=== PATIENT | female | born 1965 | race Caucasian/White ===

== ENCOUNTER 2016-05-18 17:43 | Inpatient (IN) | payer SELFPAY ==
[~2016-05-18] VITALS: Ht 162.6 cm; Wt 84.8 kg
[2016-05-18] MEDS ORDERED: MORPHINE SULFATE 4 MG/ML CPJ (NOT FOR IM USE) IV STA (18:04)
[2016-05-18] MEDS ORDERED: ONDANSETRON HCL 4MG/2ML VIAL IV STA (18:04)
[2016-05-18 18:21] LABS: BASOPHILS % 0.8 % (0.0-2.0); HEMOGLOBIN. 11.8 g/dL (12.0-16.0); LYMPHOCYTES % 31.4 % (20.0-50.0); MEAN CORPUSCULAR HEMOGLOBIN 26.9 pg (28.0-32.0); MEAN CORPUSCULAR HGB CONC 32.8 g/dL (31.0-37.0); MEAN PLATELET VOLUME 9.4 fl (7.4-10.4); MONOCYTES % 9.5 % (2.0-8.0); NEUTROPHILS % 55.3 % (40.0-76.0); PLATELET 200 x1000/uL (130-400); RED BLOOD CELL COUNT 4.39 mill/uL (4.2-5.4); RED CELL DISTRIBUTION WIDTH 15.5 % (11.6-14.6); WHITE BLOOD COUNT 6.8 x1000/uL (4.5-11.0)
[2016-05-18 18:27] LABS: PROTHROMBIN TIME 10.6 sec
[2016-05-18 18:29] LABS: ANION GAP 13; CALCIUM 8.7 mg/dL (8.5-10.1); CARBON DIOXIDE 24 mEq/L (21-32); CHLORIDE 109 mEq/L (98-107); ETHANOL BLOOD < 10 mg/dL; INDEX HEMOLYSI 1 (1-3); INDEX ICTERIC 1 (1-4); INDEX LIPEMIC 1 (1-3); UREA NITROGEN BLOOD 75 mg/dL (7-21)
[2016-05-18 18:36] LABS: ALANINE AMINOTRANSFERASE 11 IU/L (13-61); CREATINE KINASE 92 IU/L (26-192); NT PRO B-TYPE NATRIURETIC PEP 441 pg/mL (5-125); TROPONIN I < 0.02 ng/mL (0.00-0.04); eGFR 31 mL/min (>60)
[2016-05-18] MEDS ORDERED: ACETAMINOPHEN 325MG TABLET PO ONE (18:45)
[2016-05-18 20:40] LABS: CLARITY URINE CLOUDY (CLEAR); COLOR URINE YELLOW (YELLOW); GLUCOSE URINE NEGATIVE (NEGATIVE); KETONES URINE NEGATIVE (NEGATIVE); LEUKOCYTE ESTERASE URINE TRACE (NEGATIVE); NITRITE URINE NEGATIVE (NEGATIVE); OCCULT BLOOD URINE TRACE (NEGATIVE); PROTEIN URINE 3+ (NEGATIVE); SPECIFIC GRAVITY URINE 1.017 (1.005-1.030); UROBILINOGEN URINE 0.2 E.U./dL (0.2-1.0)
[2016-05-18 20:54] LABS: *AMPHETAMINES SCREEN URINE NEGATIVE (NEGATIVE); *BARBITURATES SCREEN URINE NEGATIVE (NEGATIVE); *BENZODIAZEPINES SCREEN URINE NEGATIVE (NEGATIVE); *COCAINE SCREEN URINE NEGATIVE (NEGATIVE); CANNABINOID URINE SCREEN NEGATIVE (NEGATIVE); ECSTASY MDMA SCREEN URINE NEGATIVE (NEGATIVE); METHADONE URINE SCREEN NEGATIVE (NEGATIVE); OPIATES URINE SCREEN NEGATIVE (NEGATIVE); PHENCYCLIDINE URINE SCREEN NEGATIVE (NEGATIVE)
[2016-05-18 20:57] LABS: BACTERIA URINE 1+; RBC URINE 0-2 /hpf (0-2); SQUAMOUS EPITHELIAL CELL URINE 2+ /lpf (RARE/1+)
[2016-05-18] MEDS ORDERED: CEFTRIAXONE 1 G PREMIX 50 ML IV ONE (21:30)
[2016-05-18 22:40] VITALS: BP 130/68
[2016-05-18 23:00] VITALS: BP 130/68
[2016-05-18] MEDS ORDERED: CLONIDINE 0.1MG TABLET PO PRN (23:15)
[2016-05-18] MEDS ORDERED: ACETAMINOPHEN 325MG TABLET PO PRN (23:15)
[2016-05-18] MEDS ORDERED: DOCUSATE SODIUM 100MG CAPSULE PO PRN (23:15)
[2016-05-18] MEDS ORDERED: MAGNESIUM/ALUMINUM HYDROXIDE/SIMETHICONE 30ML UDC PO PRN (23:15)
[2016-05-18] MEDS ORDERED: ONDANSETRON HCL 4MG/2ML VIAL IV PRN (23:15)
[2016-05-18] MEDS ORDERED: IPRATROPIUM/ALBUTEROL 0.5-3(2.5)MG/3ML NEB INH PRN (23:15)
[2016-05-19] VITALS: BP 129/69
[2016-05-19] MEDS: SODIUM CHLORIDE 0.9% 1,000 ML IV SCH ×2 (00:26→13:25)
[2016-05-19] MEDS ORDERED: DEXTROSE 50% WATER 50ML SYRINGE IV PRN ×2 (01:45→14:45)
[2016-05-19 04:00] VITALS: BP_SYST 117; BP_SYST 126; BP_SYST 127; BP_DIAS 73; BP_DIAS 79; BP_DIAS 85
[2016-05-19 05:36] LABS: BASOPHILS % 0.6 % (0.0-2.0); EOSINOPHILS % 3.2 % (0.0-5.0); HEMOGLOBIN. 10.9 g/dL (12.0-16.0); LYMPHOCYTES % 29.6 % (20.0-50.0); MEAN CORPUSCULAR HGB CONC 33.1 g/dL (31.0-37.0); MEAN CORPUSCULAR VOLUME 81.5 fL (81.0-99.0); MEAN PLATELET VOLUME 9.7 fl (7.4-10.4); MONOCYTES % 9.2 % (2.0-8.0); NEUTROPHILS % 57.4 % (40.0-76.0); PLATELET 197 x1000/uL (130-400); RED BLOOD CELL COUNT 4.04 mill/uL (4.2-5.4); RED CELL DISTRIBUTION WIDTH 15.2 % (11.6-14.6); WHITE BLOOD COUNT 6.9 x1000/uL (4.5-11.0)
[2016-05-19 05:56] LABS: ANION GAP 14; CALCIUM 8.5 mg/dL (8.5-10.1); CARBON DIOXIDE 22 mEq/L (21-32); CHLORIDE 108 mEq/L (98-107); INDEX HEMOLYSI 1 (1-3); INDEX ICTERIC 1 (1-4); INDEX LIPEMIC 1 (1-3); MAGNESIUM 2.5 mg/dL (1.8-2.4); UREA NITROGEN BLOOD 72 mg/dL (7-21)
[2016-05-19 06:03] LABS: CREATINE KINASE 99 IU/L (26-192); CREATINE KINASE MB FRACTION 1.4 ng/mL (0.5-3.6); HDL CHOLESTEROL 41 mg/dL (40-59); LDL CHOLESTEROL 148 mg/dL (5-100); TRIGLYCERIDE 443 mg/dL (0-150); TROPONIN I < 0.02 ng/mL (0.00-0.04); eGFR 29 mL/min (>60)
[2016-05-19] MEDS ORDERED: BLOOD SUGAR DIAGNOSTIC STRIP TEST SCH (07:40)
[2016-05-19 08:00] VITALS: BP 116/69
[2016-05-19] MEDS ORDERED: HYDROCODONE/ACETAMINOPHEN 5/325MG TABLET PO PRN (09:30)
[2016-05-19] MEDS: ENOXAPARIN 40MG/0.4ML SYR SUBCUT SCH (09:33)
[2016-05-19] MEDS: INSULIN LISPRO 100 UNITS/ML SUBCUT SCH ×4 (09:34→21:41)
[2016-05-19] MEDS: HYDROCODONE/ACETAMINOPHEN 5/325MG TABLET PO PRN ×2 (10:00→19:03)
[2016-05-19 12:00] VITALS: BP_SYST 118; BP_SYST 134; BP_SYST 139; BP_DIAS 75; BP_DIAS 80
[2016-05-19 12:12] LABS: HEPATITIS B SURFACE ANTIGEN NEGATIVE
[2016-05-19 12:40] LABS: HEPATITIS C VIR.AB < 0.02 INDEXVAL (0.00-0.80)
[2016-05-19 12:41] LABS: HEPATITIS B CORE AB IGM NEGATIVE
[2016-05-19 12:42] LABS: HEPATITIS A AB IGM NEGATIVE (NEGATIVE)
[2016-05-19 16:00] VITALS: BP 140/82
[2016-05-19 16:30] LABS: CREATINE KINASE 87 IU/L (26-192); CREATINE KINASE MB FRACTION 1.2 ng/mL (0.5-3.6); INDEX HEMOLYSI 1 (1-3); TROPONIN I < 0.02 ng/mL (0.00-0.04)
[2016-05-19] MEDS: BLOOD SUGAR DIAGNOSTIC STRIP TEST SCH ×2 (17:40→21:40)
[2016-05-19 20:00] VITALS: BP 132/72
[2016-05-19] MEDS ORDERED: ATORVASTATIN CALCIUM 40MG TABLET PO SCH (21:00)
[2016-05-19] MEDS ORDERED: HYDR25TA PO (22:19)
[2016-05-19] MEDS ORDERED: ASPI-1035 PO (22:19)
[2016-05-19] MEDS ORDERED: DOCU-150 PO (22:19)
[2016-05-19] MEDS ORDERED: GABA-290 PO (22:19)
[2016-05-19] MEDS ORDERED: ATOR80TA PO (22:19)
[2016-05-19] MEDS ORDERED: LEVO50TA70 PO (22:19)
[2016-05-19] MEDS ORDERED: LISI10TA5 PO (22:19)
[2016-05-19] MEDS ORDERED: FENO145T19 PO (22:22)
[2016-05-19] MEDS ORDERED: DOCUSATE SODIUM 100MG CAPSULE PO PRN (22:30)
[2016-05-19] MEDS: GABAPENTIN 300MG CAPSULE PO SCH (22:37)
[2016-05-20] VITALS: BP 153/86
[2016-05-20 04:00] VITALS: BP 120/70
[2016-05-20 06:08] LABS: BASOPHILS % 0.5 % (0.0-2.0); EOSINOPHILS % 1.6 % (0.0-5.0); HEMATOCRIT. 33.5 % (36.0-48.0); HEMOGLOBIN. 10.9 g/dL (12.0-16.0); LYMPHOCYTES % 25.6 % (20.0-50.0); MEAN CORPUSCULAR HEMOGLOBIN 27.1 pg (28.0-32.0); MEAN CORPUSCULAR HGB CONC 32.5 g/dL (31.0-37.0); MEAN CORPUSCULAR VOLUME 83.5 fL (81.0-99.0); MEAN PLATELET VOLUME 9.9 fl (7.4-10.4); MONOCYTES % 6.3 % (2.0-8.0); PLATELET 182 x1000/uL (130-400); RED BLOOD CELL COUNT 4.01 mill/uL (4.2-5.4); WHITE BLOOD COUNT 6.7 x1000/uL (4.5-11.0)
[2016-05-20 06:27] LABS: CALCIUM 8.4 mg/dL (8.5-10.1)
[2016-05-20] MEDS: BLOOD SUGAR DIAGNOSTIC STRIP TEST SCH ×2 (06:48→12:40)
[2016-05-20] MEDS ORDERED: LEVOTHYROXINE SODIUM 50MCG TABLET PO SCH (07:40)
[2016-05-20 08:00] VITALS: BP 140/78
[2016-05-20] MEDS ORDERED: HYDROCHLOROTHIAZIDE 25MG TABLET PO SCH (09:00)
[2016-05-20] MEDS ORDERED: ASPIRIN 81MG EC TABLET PO SCH (09:00)
[2016-05-20] MEDS ORDERED: FENOFIBRATE NANOCRYSTALLIZED 48MG TABLET PO SCH (09:00)
[2016-05-20] MEDS: LISINOPRIL 10MG TABLET PO SCH ×2 (09:06→17:00)
[2016-05-20] MEDS: ENOXAPARIN 40MG/0.4ML SYR SUBCUT SCH (09:07)
[2016-05-20] MEDS: INSULIN LISPRO 100 UNITS/ML SUBCUT SCH ×2 (09:10→13:14)
[2016-05-20] MEDS: HYDROCODONE/ACETAMINOPHEN 5/325MG TABLET PO PRN (09:15)
[2016-05-20] MEDS ORDERED: SODIUM POLYSTYRENE SULFONATE 15 G/60 ML BOT PO NR (10:00)
[2016-05-20 12:00] VITALS: BP 129/77
[2016-05-20] MEDS: SODIUM CHLORIDE 0.9% 1,000 ML IV SCH (12:43)
[2016-05-20] MEDS ORDERED: ATOR80TA PO (12:44)
[2016-05-20] MEDS ORDERED: AMLO10TA80 PO (12:44)
[2016-05-20] MEDS ORDERED: HYDR25TA PO (12:44)
[2016-05-20] MEDS ORDERED: FENO145T19 PO (12:44)
[2016-05-20] MEDS ORDERED: GABA-290 PO (12:44)
[2016-05-20 16:00] VITALS: BP 122/67
[2016-05-20] MEDS: GABAPENTIN 300MG CAPSULE PO SCH (17:00)
[2016-05-22 06:18] LABS: ANTI-NUCLEAR ANTIBODIES DIRECT Positive (Negative); COMPLEMENT C3 133 mg/dL (82-167); COMPLEMENT C4 28 mg/dL (14-44)
== END 2016-05-20 17:15 | disposition home or self-care (01) | DRG 468 ==
LOC: EDBD 17:45 → ER 17:45 → 7WST 21:44
PROVIDERS: ADMIT Internal Medicine; ATTEND Internal Medicine
DX: I12.9 Hypertensive chronic kidney disease with stage 1 through stage 4 chronic kidney disease, or unspecified chronic kidney disease (principal); G93.40 Encephalopathy, unspecified; N17.9 Acute kidney failure, unspecified; E11.22 Type 2 diabetes mellitus with diabetic chronic kidney disease; E11.649 Type 2 diabetes mellitus with hypoglycemia without coma; N18.3 Chronic kidney disease, stage 3 (moderate); D63.8 Anemia in other chronic diseases classified elsewhere; E87.5 Hyperkalemia; E78.00 Pure hypercholesterolemia, unspecified; I25.10 Atherosclerotic heart disease of native coronary artery without angina pectoris; E78.5 Hyperlipidemia, unspecified; H40.9 Unspecified glaucoma; F32.9 Major depressive disorder, single episode, unspecified; F41.9 Anxiety disorder, unspecified; M19.079 Primary osteoarthritis, unspecified ankle and foot; H26.9 Unspecified cataract; J32.9 Chronic sinusitis, unspecified; E66.9 Obesity, unspecified; E86.0 Dehydration; N39.0 Urinary tract infection, site not specified; Z79.4 Long term (current) use of insulin; Z68.32 Body mass index [BMI] 32.0-32.9, adult; Z95.1 Presence of aortocoronary bypass graft; Z88.8 Allergy status to other drugs, medicaments and biological substances
CPT/HCPCS: 36415; 70450; 70551; 71010; 76770; 80048; 80053; 80061; 80305; 81001; 82550; 82553; 82962; 83036; 83605; 83735; 83880; 84100; 84443; 84484; 85025; 85610; 86038; 86160; 86592; 86705; 86709; 86803; 87040; 87086; 87340; 93005; 93306; 93880; 96374; 96375; 99285; G0482; J0696; J1650; J1815; J2270; J2405; J7030

== ENCOUNTER 2018-06-27 19:25 | Inpatient (IN) | payer SELFPAY ==
[~2018-06-27] VITALS: Ht 162.6 cm; Wt 80.9 kg
[~2018-06-27 19:25] MED LIST: AMLO10TA80 PO; ASPI-1159 PO; ATOR80TA PO; DOCU-150 PO; FENO145T36 PO; GABA-290 PO; HYDR25TA PO; LEVO50TA PO
[2018-06-27] MEDS ORDERED: ASPIRIN 81MG TABLET PO ONE (20:00)
[2018-06-27] MEDS ORDERED: NITROGLYCERIN 0.4MG TABLET SL SL PRN (20:00)
[2018-06-27 20:17] LABS: BASOPHILS % 0.6 % (0.0-2.0); EOSINOPHILS % 3.5 % (0.0-5.0); HEMATOCRIT. 31.2 % (36.0-48.0); HEMOGLOBIN. 10.4 g/dL (12.0-16.0); LYMPHOCYTES % 22.4 % (20.0-50.0); MEAN CORPUSCULAR HEMOGLOBIN 27.8 pg (28.0-32.0); MEAN CORPUSCULAR VOLUME 83.5 fL (81.0-99.0); MEAN PLATELET VOLUME 9.8 fl (7.4-10.4); MONOCYTES % 8.9 % (2.0-8.0); NEUTROPHILS % 64.6 % (40.0-76.0); PLATELET 187 x1000/uL (130-400); RED BLOOD CELL COUNT 3.73 mill/uL (4.2-5.4); RED CELL DISTRIBUTION WIDTH 14.5 % (11.6-14.6)
[2018-06-27 20:21] LABS: CHLORIDE 113 mEq/L (98-107)
[2018-06-27] MEDS ORDERED: ENOXAPARIN 80MG/0.8ML SYR SUBCUT ONE (20:45)
[2018-06-27 21:33] LABS: *AMPHETAMINES SCREEN URINE NEGATIVE (NEGATIVE); *BARBITURATES SCREEN URINE NEGATIVE (NEGATIVE); *BENZODIAZEPINES SCREEN URINE NEGATIVE (NEGATIVE); *COCAINE SCREEN URINE NEGATIVE (NEGATIVE)
[2018-06-27 21:34] LABS: CANNABINOID URINE SCREEN NEGATIVE (NEGATIVE); METHADONE URINE SCREEN NEGATIVE (NEGATIVE); OPIATES URINE SCREEN NEGATIVE (NEGATIVE); PHENCYCLIDINE URINE SCREEN NEGATIVE (NEGATIVE)
[2018-06-27] MEDS ORDERED: DOCUSATE SODIUM 100MG CAPSULE PO PRN (22:15)
[2018-06-27] MEDS ORDERED: LORAZEPAM 2MG/ML CPJ IV PRN (22:15)
[2018-06-27] MEDS ORDERED: MAGNESIUM/ALUMINUM HYDROXIDE/SIMETHICONE 30ML UDC PO PRN (22:15)
[2018-06-27] MEDS ORDERED: DEXTROSE 50% WATER 50ML SYRINGE IV PRN (22:15)
[2018-06-27] MEDS ORDERED: ENOXAPARIN 40MG/0.4ML SYR SUBCUT SCH (22:15)
[2018-06-27] MEDS ORDERED: HYDROMORPHONE HCL/PF 2MG/ML CPJ IV PRN (22:15)
[2018-06-27] MEDS ORDERED: CLONIDINE 0.1MG TABLET PO PRN (22:15)
[2018-06-27] MEDS ORDERED: HYDRALAZINE 20MG/ML VIAL IV PRN (22:15)
[2018-06-27] MEDS ORDERED: IPRATROPIUM/ALBUTEROL 0.5-3(2.5)MG/3ML NEB INH PRN (22:15)
[2018-06-27] MEDS ORDERED: ONDANSETRON HCL 4MG/2ML INJ IV PRN (22:15)
[2018-06-27] MEDS ORDERED: DIPHENHYDRAMINE 50MG/ML VIAL IV PRN (22:15)
[2018-06-27] MEDS ORDERED: GUAIFENESIN 200MG/10ML SUGAR FREE UDC PO PRN (22:15)
[2018-06-27] MEDS ORDERED: ACETAMINOPHEN 325MG TABLET PO PRN (22:15)
[2018-06-27] MEDS ORDERED: HYDROCODONE/ACETAMINOPHEN 10/325MG TABLET PO PRN (22:15)
[2018-06-28] VITALS (31 sets, daily range): BP systolic 127–177; BP diastolic 66–98
[2018-06-28] MEDS: SODIUM CHLORIDE 0.9% INJ 3ML FLUSH IVF SCH ×3 (06:02→21:07)
[2018-06-28] MEDS ORDERED: BLOOD SUGAR DIAGNOSTIC STRIP TEST SCH (06:50)
[2018-06-28 07:11] LABS: BASOPHILS % 0.8 % (0.0-2.0); EOSINOPHILS % 4.2 % (0.0-5.0); HEMATOCRIT. 30.9 % (36.0-48.0); LYMPHOCYTES % 29.1 % (20.0-50.0); MEAN CORPUSCULAR HEMOGLOBIN 27.7 pg (28.0-32.0); MEAN CORPUSCULAR VOLUME 85.2 fL (81.0-99.0); MEAN PLATELET VOLUME 10.4 fl (7.4-10.4); MONOCYTES % 9.6 % (2.0-8.0); NEUTROPHILS % 56.3 % (40.0-76.0); PLATELET 172 x1000/uL (130-400); RED BLOOD CELL COUNT 3.62 mill/uL (4.2-5.4); RED CELL DISTRIBUTION WIDTH 15.1 % (11.6-14.6)
[2018-06-28] MEDS ORDERED: INSULIN LISPRO 100 UNITS/ML SUBCUT SCH (07:20)
[2018-06-28] MEDS: BLOOD SUGAR DIAGNOSTIC STRIP TEST SCH ×4 (07:50→20:41)
[2018-06-28] MEDS: INSULIN LISPRO 100 UNITS/ML SUBCUT SCH ×4 (07:55→20:39)
[2018-06-28] MEDS: ENOXAPARIN 30MG/0.3ML SYR SUBCUT SCH (07:56)
[2018-06-28 08:07] LABS: CHLORIDE 116 mEq/L (98-107)
[2018-06-28 08:31] LABS: CREATINE KINASE MB FRACTION 28.3 ng/mL (0.5-3.6); LDL CHOLESTEROL 67 mg/dL (5-100)
[2018-06-28 08:32] LABS: CREATINE KINASE 458 IU/L (26-192); HDL CHOLESTEROL 48 mg/dL (40-59); T4 FREE 1.31 ng/dL (0.76-1.46)
[2018-06-28] MEDS ORDERED: ASPIRIN 81MG EC TABLET PO SCH (09:00)
[2018-06-28] MEDS ORDERED: CLONIDINE 0.2MG TABLET PO PRN (10:15)
[2018-06-28] MEDS: NITROGLYCERIN OINT 1GM/INCH UDPKT TD SCH ×4 (10:21→20:34)
[2018-06-28] MEDS: AMLODIPINE 5MG TABLET PO SCH ×2 (10:47→20:35)
[2018-06-28 10:49] LABS: BG BASE EXCESS -4.1 mmol/L (-2.0-2.0); BG CARBOXYHEMOGLOBIN 0.4 % (0.5-1.5); BG DEOXYHEMOGLOBIN 2.8 % (0.0-5.0); BG FRACTION INSPIRED OXYGEN 28; BG HCO3 ACT 19.9 mmol/L (22.0-26.0); BG OXYGEN SATURATION 97.2 % (92.0-98.5); BG OXYHEMOGLOBIN 96.8 % (94.0-97.0); BG PCO2 32.9 mmHg (35.0-45.0); BG PO2 93.1 mmHg (75.0-100.0); BG SAMPLE SITE LEFT BRACHIAL; BG TOTAL HEMOGLOBIN 11.4 g/dL (12.0-18.0); BG VENT MODE NASAL CANNULA
[2018-06-28 12:13] LABS: UCG SCREEN NEGATIVE
[2018-06-28 12:35] LABS: *BENZODIAZEPINES SCREEN URINE NEGATIVE (NEGATIVE); *COCAINE SCREEN URINE NEGATIVE (NEGATIVE); METHADONE URINE SCREEN NEGATIVE (NEGATIVE); OPIATES URINE SCREEN NEGATIVE (NEGATIVE)
[2018-06-28 12:36] LABS: *AMPHETAMINES SCREEN URINE NEGATIVE (NEGATIVE); CANNABINOID URINE SCREEN NEGATIVE (NEGATIVE); PHENCYCLIDINE URINE SCREEN NEGATIVE (NEGATIVE)
[2018-06-28] MEDS ORDERED: ENOXAPARIN 30MG/0.3ML SYR SUBCUT NR (13:00)
[2018-06-28 13:05] LABS: *BARBITURATES SCREEN URINE NEGATIVE (NEGATIVE)
[2018-06-28] MEDS ORDERED: NITROGLYCERIN OINT 1GM/INCH UDPKT TD NR (13:15)
[2018-06-28] MEDS: ASPIRIN 81MG EC TABLET PO SCH (16:51)
[2018-06-28] MEDS: CARVEDILOL 3.125 MG TABLET PO SCH (20:35)
[2018-06-29] VITALS (7 sets, daily range): BP systolic 116–146; BP diastolic 50–76
[2018-06-29] MEDS: NITROGLYCERIN OINT 1GM/INCH UDPKT TD SCH ×3 (00:20→07:52)
[2018-06-29] MEDS: BLOOD SUGAR DIAGNOSTIC STRIP TEST SCH (06:16)
[2018-06-29] MEDS: SODIUM CHLORIDE 0.9% INJ 3ML FLUSH IVF SCH (06:16)
[2018-06-29] MEDS: INSULIN LISPRO 100 UNITS/ML SUBCUT SCH (06:23)
[2018-06-29 06:31] LABS: BASOPHILS % 0.8 % (0.0-2.0); EOSINOPHILS % 6.1 % (0.0-5.0); HEMATOCRIT. 28.2 % (36.0-48.0); HEMOGLOBIN. 9.3 g/dL (12.0-16.0); LYMPHOCYTES % 28.6 % (20.0-50.0); MEAN CORPUSCULAR VOLUME 84.6 fL (81.0-99.0); MEAN PLATELET VOLUME 10.2 fl (7.4-10.4); MONOCYTES % 10.9 % (2.0-8.0); NEUTROPHILS % 53.6 % (40.0-76.0); PLATELET 166 x1000/uL (130-400); RED BLOOD CELL COUNT 3.33 mill/uL (4.2-5.4); RED CELL DISTRIBUTION WIDTH 14.5 % (11.6-14.6)
[2018-06-29 06:50] LABS: CHLORIDE 110 mEq/L (98-107)
[2018-06-29 06:57] LABS: LDL CHOLESTEROL 71 mg/dL (5-100)
[2018-06-29 06:58] LABS: CREATINE KINASE 186 IU/L (26-192)
[2018-06-29 06:59] LABS: CREATINE KINASE MB FRACTION 6.8 ng/mL (0.5-3.6); HDL CHOLESTEROL 44 mg/dL (40-59)
[2018-06-29] MEDS: CARVEDILOL 3.125 MG TABLET PO SCH (07:51)
[2018-06-29] MEDS: ASPIRIN 81MG EC TABLET PO SCH (07:51)
[2018-06-29] MEDS: ENOXAPARIN 30MG/0.3ML SYR SUBCUT SCH (07:53)
[2018-06-29] MEDS ORDERED: SODIUM CHLORIDE 0.45% 1,000 ML IV SCH (09:00)
[2018-06-29] MEDS: AMLODIPINE 5MG TABLET PO SCH (09:27)
[2018-06-29] MEDS ORDERED: SODIUM POLYSTYRENE SULFONATE 15 G/60 ML BOT PO SCH (10:00)
[2018-06-29 14:50] LABS: CLARITY URINE CLEAR (CLEAR); COLOR URINE YELLOW (YELLOW); KETONES URINE NEGATIVE (NEGATIVE); LEUKOCYTE ESTERASE URINE NEGATIVE (NEGATIVE); NITRITE URINE NEGATIVE (NEGATIVE); OCCULT BLOOD URINE NEGATIVE (NEGATIVE); PH URINE 5.5 (4.5-8.0); PROTEIN URINE 3+ (NEGATIVE); SPECIFIC GRAVITY URINE 1.017 (1.005-1.030); UROBILINOGEN URINE 0.2 E.U./dL (0.2-1.0)
[2018-06-30 17:11] LABS: ANTI-NUCLEAR ANTIBODIES DIRECT Positive (Negative)
[2018-07-01 08:21] LABS: COMPLEMENT C3 121 mg/dL (82-167)
== END 2018-06-29 10:50 | disposition left against medical advice (07) | DRG 198 ==
LOC: ER 19:25 → 3WST 21:04 → EDBEDREQTM 21:06 → EDBEDREQ 21:06 → EDBEDREQSVC 21:06 → ENRESERV 21:13
PROVIDERS: ADMIT Internal Medicine; ATTEND Internal Medicine
DX: I24.9 Acute ischemic heart disease, unspecified (principal); E43 Unspecified severe protein-calorie malnutrition; N17.9 Acute kidney failure, unspecified; E11.22 Type 2 diabetes mellitus with diabetic chronic kidney disease; E11.42 Type 2 diabetes mellitus with diabetic polyneuropathy; D64.9 Anemia, unspecified; E03.9 Hypothyroidism, unspecified; E78.00 Pure hypercholesterolemia, unspecified; E78.5 Hyperlipidemia, unspecified; I13.0 Hypertensive heart and chronic kidney disease with heart failure and stage 1 through stage 4 chronic kidney disease, or unspecified chronic kidney disease; I25.5 Ischemic cardiomyopathy; I25.10 Atherosclerotic heart disease of native coronary artery without angina pectoris; I50.9 Heart failure, unspecified; N18.9 Chronic kidney disease, unspecified; Z95.1 Presence of aortocoronary bypass graft; Z95.5 Presence of coronary angioplasty implant and graft; I25.2 Old myocardial infarction; Z79.82 Long term (current) use of aspirin; Z79.899 Other long term (current) drug therapy; Z68.30 Body mass index [BMI] 30.0-30.9, adult
CPT/HCPCS: 36415; 36600; 71045; 76770; 80061; 80305; 81025; 82375; 82550; 82553; 82805; 82962; 83036; 83735; 83880; 84439; 84443; 84484; 85379; 86038; 86160; 93005; 93306; 93970; 96372; 99291; J0360; J1650; J1815